=== PATIENT | female | born 2000 | race African-American/Black ===

== ENCOUNTER 2021-02-22 15:24 | Emergency (ER) | payer OTHER, SELFPAY ==
[2021-02-22 15:37] VITALS: BP 112/73; PULSE 86; RESP 16; TEMP 35.9; O2SAT 100
--- NOTE | 2021-02-22 16:13 | ED.URI ---
HPI - URI/Sore Throat General Chief Complaint: Upper Respiratory Infection Stated Complaint: sore throat/sob/congestion Time Seen by Provider: 02/22/21 16:13 Source: patient Mode of arrival: ambulatory Limitations: no limitations History of Present Illness HPI Narrative: David Deutsch is a 20 yo female with complaints of upper respiratory symptoms for the last 3 days. She has not had a fever, no nausea or vomiting, dates she had 1 or 2 bouts of diarrhea in the last 2 to 3 days. Is not had a Covid vaccine. She is not in distress at the present moment Related Data Allergies Allergy/AdvReac Type Severity Reaction Status Date / Time No Known Allergies Allergy Verified 02/22/21 16:02 Review of Systems Review of Systems: CONSTITUTIONAL: Denies fever, chills, sweats. EYES: Denies visual changes, redness, discharge. ENT: has rhinorrhea, congestion,has sore throat, otalgia. CARDIOVASCULAR: Denies chest pain, palpitations, edema. RESPIRATORY: Denies dyspnea, wheezing, cough GASTROINTESTINAL: Denies abdominal pain, nausea, vomiting, diarrhea. GENITOURINARY: Denies dysuria, hematuria, abnormal discharge SKIN: Denies rash or itching. NEUROLOGIC: Denies numbness, or focal weakness. PSYCHIATRIC: Denies anxiety or depression. [facility] Past Medical History Medical History No acute medical problems Family History Family History Other No acute medical problems Social History Social History (Updated 02/22/21 @ 16:16 by Kimberlee Spangler CNP) Smoking status: Never smoker Alcohol intake: never Comments At time of signature, I agree with nursing past medical, surgical, social and family history. There is no relevant family history pertinent to the presenting complaint. Exam Narrative: GENERAL: This is a well-nourished, well-developed patient, in mild distress. HEAD: normocephalic, atraumatic. EYES: PERRL. Sclera clear/white. Vision is grossly intact. EARS: External ears normal, auditory canals clear and without drainage, TMs normal without perforation. Hearing grossly intact. NOSE: External nose normal without nasal discharge, nares without redness, no rhinorrhea. THROAT: Mucous membranes moist, posterior pharynx mild erythema NECK: Neck supple, non-tender CARDIOVASCULAR: Regular rate and rhythm without murmurs, gallops, or rubs. RESPIRATORY: Clear to auscultation. Breath sounds equal bilaterally. No wheezes, rales, or rhonchi. GASTROINTESTINAL: Abdomen soft, non-tender, SKIN: warm, intact with no suspicious lesions or rash, good texture and turgor. NEURO: awake, alert, and oriented to person, place and time. There were no obvious focal neurologic abnormalities. Steady gait EXTREMITIES: Normal range of motion. BACK: Nontender without deformity Course Course Emergency Course: Patient here for assessment of URI Patient started on Zyrtec, Flonase, follow-up with primary care physician Vital Signs Vital signs: Vital Signs Temperature 96.6 F L 02/22/21 15:37 Pulse Rate 86 02/22/21 15:37 Respiratory Rate 16 02/22/21 15:37 Blood Pressure 112/73 02/22/21 15:37 Pulse Oximetry 100 02/22/21 15:37 Temperature 96.6 F L 02/22/21 15:37 Pulse Rate 86 02/22/21 15:37 Respiratory Rate 16 02/22/21 15:37 Blood Pressure 112/73 02/22/21 15:37 Pulse Oximetry 100 02/22/21 15:37 MDM - URI/Sore Throat Differential Diagnosis Differential diagnosis: Likely upper respiratory infection, sinusitis, bronchitis, pharyngitis and other Critical Care Time Critical Care Time Critical Care Time: No Discharge Plan Discharge Clinical Impression: Upper respiratory infection Qualifiers: URI type: unspecified URI Qualified Code(s): J06.9 - Acute upper respiratory infection, unspecified Patient Disposition: Home, Self-Care Condition: Stable Instructions: Upper Respiratory Infection (DC)
== END 2021-02-22 16:40 | disposition home or self-care (01) ==
PROVIDERS: Emergency Provider Nurse Practitioner
DX: J06.9 Acute upper respiratory infection, unspecified (principal); J45.909 Unspecified asthma, uncomplicated
CPT/HCPCS: 99203; G0463

== ENCOUNTER 2021-06-29 17:50 | Emergency (ER) | payer OTHER, SELFPAY ==
[2021-06-29] VITALS (11 sets, daily range): BP systolic 114–138; BP diastolic 57–76; PULSE 99–117; RESP 15–31; TEMP 36.9; O2SAT 98–100
--- NOTE | ~2021-06-29 | XR_ITS ---
EXAMINATION: XR chest 2V EXAM DATE: 06/29/2021 18:22 INDICATION: SOB, CP, wheezing X 5 Days, Hx Asthma. TECHNIQUE: Frontal and lateral projections of the chest obtained and reviewed. There is no prior henry dy for comparison. FINDINGS: The lungs are clear. There are no pleural effusions. The cardiomediastinal silhouette is within normal limits. There is no pneumothorax suspected. The bones and soft tissues are unremarkab le. IMPRESSION: No acute cardiopulmonary findings. Reviewed, dictated and finalized at location G.
--- NOTE | 2021-06-29 17:54 | ECG_ITS ---
Measurements Intervals [place] Rate: 99 P: 48 PA: 148 QRS: 85 QRSD: 86 T: 29 QT: 342 QTc: 440 Interpretive Statements SINUS RHYTHM NONSPECIFIC T-WAVE ABNORMALITY RIGHT AXIS DEVIATION ABNORMAL ECG NO PREVIOUS ECG AVAILABLE FOR COMPARISON Electronically Signed On 06-30-2021 16:13:53 CDT by Jayden Buchanan M.D.
--- NOTE | 2021-06-29 18:00 | ED.SOB ---
HPI - SOB/Dyspnea General Chief Complaint: Shortness of Breath/Dyspnea Stated Complaint: Asthma attack Source: patient and EMS Mode of arrival: EMS Limitations: no limitations History of Present Illness HPI Narrative: Patient is a 20-year-old female who presents the ED, via EMS, with report of shortness of breath. Patient reports having increased shortness of breath over the past 4 days. She has a history of mild asthma, but does not currently take any medications for this. She has a rescue inhaler at home but was unable to find it today. Thus EMS was called. Patient also reports having a recent productive cough with green sputum and midsternal chest pain. She states she feels like something is moving around inside her chest. She denies any fever, chills, BLE pain or edema, rhinorrhea, nausea, vomiting, abdominal pain. Patient is a smoker. Related Data Allergies Allergy/AdvReac Type Severity Reaction Status Date / Time No Known Allergies Allergy Verified 06/29/21 17:58 Review of Systems Review of Systems: CONSTITUTIONAL: Denies fever, chills, or sweats. ENT: Reports rhinorrhea, congestion. CARDIOVASCULAR: Reports midsternal chest pain. Denies BLE edema. RESPIRATORY: Reports productive cough and dyspnea. GASTROINTESTINAL: Denies abdominal pain, nausea, vomiting, or diarrhea. MUSCULOSKELETAL: Denies back pain, BLE pain, or myalgia. NEUROLOGIC: Denies headache, numbness, or weakness. All systems reviewed & are unremarkable except as noted in HPI and below PMFSH Past Medical History Medical History (Updated 06/29/21 @ 20:14 by Renetta Callaway PA-C) Asthma No acute medical problems Surgical History Surgical History (Updated 06/29/21 @ 18:04 by Renetta Callaway PA-C) No pertinent past surgical history Family History Family History Other No acute medical problems Social History Social History (Updated 06/29/21 @ 18:04 by Renetta Callaway PA-C) Smoking status: Current every day smoker Tobacco type: cigarettes Alcohol intake: never Substance use type: marijuana Exam Narrative: GENERAL: Well appearing, obese, non-toxic, in no acute distress. HEAD: Normocephalic, atraumatic. EYES: PERRL/EOMI, conjunctivae clear bilaterally. EARS:TMS clear, with good light reflex. No erythema or bulging. THROAT: Pharynx clear, no exudate. MMs moist. NECK: Supple. No adenopathy, no masses. RESPIRATORY: Airway patent, respirations nonlabored, but slightly tachypneic. Diffuse wheezing in lung [place] bilaterally. CARDIOVASCULAR: Tachycardic with regular rhythm without murmurs, rubs, or gallops. Peripheral pulses 2+ and equal bilaterally. ABDOMINAL: Soft, nontender, nondistended, no hepatosplenomegaly. Normoactive BS. MUSCULOSKELETAL: Moves all extremities. Strength/ROM intact without gross deformities or TTP. No edema. No calf tenderness. SKIN: Warm, dry, normal color. No rashes. NEURO: A&O X3. Speech clear. Cranial nerves II-XII grossly intact. Steady gait. No ataxic movements. PSYCHIATRIC: Tearful. Appropriate mood and affect. Normal interaction. Course Vital Signs Vital signs: Vital Signs Temperature 98.4 F 06/29/21 17:53 Pulse Rate 101 H 06/29/21 17:53 Respiratory Rate 20 06/29/21 17:53 Blood Pressure 138/72 06/29/21 17:53 Pulse Oximetry 100 06/29/21 17:53 Temperature 98.4 F 06/29/21 17:53 Pulse Rate 114 H 06/29/21 20:01 Respiratory Rate 31 H 06/29/21 20:01 Blood Pressure 126/68 06/29/21 20:01 Pulse Oximetry 98 06/29/21 20:01 MDM - SOB/Dyspnea MDM Narrative Medical decision making narrative: Patient with history of mild asthma and presented to ED via EMS with acute exacerbation of asthma. She was given albuterol in the ambulance prior to arrival. Diffuse wheezing heard on auscultation bilaterally. She was given hour-long nebulizer treatment in the ED and IV Solu-Medrol. ED work-up otherwise unremarkable. Chest x-ray witho
[2021-06-29] MEDS: ALBUTEROL SULFATE NEB 2.5 MG/0.5 ML INH 15 MG INHALATION (18:06)
[2021-06-29] MEDS: IPRATROPIUM BR 0.02% INH SOLN 0.5 MG/2.5 ML VIAL 1.5 MG INHALATION (18:06)
[2021-06-29 18:08] LABS: Basophils Percent Auto 0.3 % (0.2-1.2); Eosinophils Absolute Auto 0.2 K/mm3 (0-0.3); Eosinophils Percent Auto 3.1 % (0-4.4); Hematocrit 40.4 % (37.0-47.0); Hemoglobin 13.7 g/dL (12.0-15.0); Immature Granulocyte Absolute 0.02 K/mm3 (0.00-0.031); Immature Granulocyte Percent A 0.3 % (0-0.5); Lymphocytes Absolute Auto 2.12 K/mm3 (0.9-3.2); Lymphocytes Percent Auto 29.7 % (18.3-44.2); Mean Corpuscular HGB Conc 33.9 g/dl (32-36); Mean Corpuscular Hemoglobin 27.6 pg (26-34); Mean Corpuscular Volume 81.5 fl (80-100); Mean Platelet Volume 9.7 fl (7.4-10.4); Monocytes Absolute Auto 0.6 K/mm3 (0.1-0.6); Monocytes Percent Auto 8.7 % (2.6-8.5); Neutrophils Absolute Auto 4.1 K/mm3 (1.3-6.7); Neutrophils Percent Auto 57.9 % (45.5-73.1); Platelet Count Result 278 k/mm3 (150-375); Red Blood Count 4.96 M/mm3 (4.2-5.4); White Blood Count 7.1 K/mm3 (4.5-10.0)
[2021-06-29] MEDS: methylPREDNISolone SOD SUCC 125 MG VIAL IV PUSH (18:09)
[2021-06-29 18:19] LABS: Alanine Aminotransferase 31 U/L (4-35); Albumin Level 4.3 g/dL (3.7-5.6); Alkaline Phosphatase 115 U/L (45-116); Anion Gap 6 mmol/L (8-16); Aspartate Amino Transferase 49 U/L (14-36); Bilirubin,Total 0.5 mg/dL (0.2-1.3); Blood Urea Nitrogen 8 mg/dL (8-21); Calcium 8.7 mg/dL (8.9-10.7); Carbon Dioxide 25 mmol/L (22-30); Chloride 104 mmol/L (98-107); Estimated CRCL calculation 156 ml/min; Estimated Glomerular Filt Rate > 60; Glucose 90 mg/dL (65-110); Potassium 3.7 mmol/L (3.4-5.0); Sodium 135 mmol/L (134-143)
--- NOTE | 2021-06-29 19:33 | PC.NURSE ---
BSSR from Nesha/ Carl/
--- NOTE | 2021-06-29 19:57 | PC.NURSE ---
Pt ambulated to restroom and back without difficulty. Pt provided water. Pt has no needs.Will contiue to monitor..
== END 2021-06-29 20:27 | disposition home or self-care (01) ==
PROVIDERS: Physician Assistant; Emergency Provider Emergency Medicine
DX: J45.20 Mild intermittent asthma, uncomplicated (principal); F17.210 Nicotine dependence, cigarettes, uncomplicated; R94.31 Abnormal electrocardiogram [ECG] [EKG]
CPT/HCPCS: 36415; 71046; 80053; 85025; 93005; 96374; 99284; J2930

== ENCOUNTER 2021-12-17 04:11 | Emergency (ER) | payer OTHER, SELFPAY ==
[2021-12-17 04:18] VITALS: BP 118/70; PULSE 100; RESP 18; TEMP 37.5; O2SAT 100
--- NOTE | 2021-12-17 04:27 | ED.GENADULT ---
HPI - General Adult General Chief complaint: Unspecified Stated complaint: CRAMER, sore throat, body feels on fire. Time Seen by Provider: 12/17/21 04:14 History of Present Illness HPI narrative: 20-year-old female presenting to the emergency department for evaluation of 2 days of subjective fever, sore throat and headache. Patient states the symptoms started 2 days ago. Patient has had episodes of nausea and vomiting but denies any current nausea. Patient denies any sick contacts. Patient has not tested herself for COVID. Patient does report a past medical history of asthma Related Data Allergies Allergy/AdvReac Type Severity Reaction Status Date / Time No Known Allergies Allergy Verified 12/17/21 04:24 Review of Systems Review of Systems: CONSTITUTIONAL: Subjective fever and chills EYES: Denies visual changes, redness, or discharge. ENT: Sore throat CARDIOVASCULAR: Denies chest pain, palpitations, or edema. RESPIRATORY: Cough GASTROINTESTINAL: Denies abdominal pain, nausea, vomiting, or diarrhea. GENITOURINARY: Denies dysuria or hematuria. SKIN: Denies rash or itching. MUSCULOSKELETAL: Body aches NEUROLOGIC: Denies headache, numbness, or weakness. [facility] Past Medical History Medical History (Updated 12/17/21 @ 05:26 by Fermín Busby MD) Asthma No acute medical problems Surgical History Surgical History (Updated 06/29/21 @ 18:04 by Renetta Diaz PA-C) No pertinent past surgical history Family History Family History Other No acute medical problems Social History Social History (Updated 06/29/21 @ 18:04 by Renetta Diaz PA-C) Smoking status: Current every day smoker Tobacco type: cigarettes Alcohol intake: never Substance use type: marijuana Exam Narrative: APPEARANCE: Well appearing, no pain, no distress, well-nourished. HEAD: normocephalic, atraumatic. EYES: PERRLA/EOMI, conjunctivae clear. NOSE: Normal no drainage EARS:TMS clear with good light reflex. THROAT: Pharynx clear, no exudate. NECK: Supple. No adenopathy, no masses. RESPIRATORY: Airway patent, respirations nonlabored. Clear to auscultation bilaterally, no rales, rhonchi, wheezing. CARDIOVASCULAR: Regular rate and rhythm without murmurs rubs or gallops. ABDOMINAL: Soft, nontender, nondistended, normal bowel sounds MUSCULOSKELETAL: Moves all extremities. Strength/ROM intact, No edema, No calf tenderness. NEURO: Alert. Cranial nerves II through XII intact. Grossly intact SKIN: Warm, dry. Normal Color Course Course Emergency Course: Patient's strep, COVID, influenza were negative. Patient was updated on the results of her work-up and plan for symptomatic treatment at home. Suspect a viral etiology for her symptoms. All question concerns were addressed. Patient was well-appearing at time of discharge. Vital Signs Vital signs: Vital Signs Temperature 99.5 F 12/17/21 04:18 Pulse Rate 100 12/17/21 04:18 Respiratory Rate 18 12/17/21 04:18 Blood Pressure 118/70 12/17/21 04:18 Pulse Oximetry 100 12/17/21 04:18 Oxygen Delivery Room Air 12/17/21 04:18 Temperature 99.5 F 12/17/21 04:18 Pulse Rate 70 12/17/21 05:56 Respiratory Rate 16 12/17/21 05:56 Blood Pressure 118/70 12/17/21 04:18 Pulse Oximetry 99 12/17/21 04:34 Oxygen Delivery Room Air 12/17/21 04:34 Medical Decision Making Vital Signs Vital Signs: Vital Signs Temperature 99.5 F 12/17/21 04:18 Pulse Rate 100 12/17/21 04:18 Respiratory Rate 18 12/17/21 04:18 Blood Pressure 118/70 12/17/21 04:18 Pulse Oximetry 100 12/17/21 04:18 Oxygen Delivery Room Air 12/17/21 04:18 Temperature 99.5 F 12/17/21 04:18 Pulse Rate 70 12/17/21 05:56 Respiratory Rate 16 12/17/21 05:56 Blood Pressure 118/70 12/17/21 04:18 Pulse Oximetry 99 12/17/21 04:34 Oxygen Delivery Room Air 12/17/21 04:34 Lab Data Labs: Lab R
[2021-12-17 04:34] VITALS: O2SAT 99
--- NOTE | 2021-12-17 05:15 | PC.NURSE ---
Pt and pt partner both in stretcher cuddling pt's partner instructed to get out of stretcher and only pt to be in the stretcher.
[2021-12-17 05:18] LABS: Influenza A QL RT-PCR Negative (Negative); Influenza B QL RT-PCR Negative (Negative); SARS-CoV-2 RNA PCR Negative
[2021-12-17] MEDS: ALBUTEROL SULFATE NEB 2.5 MG/3 ML INH 5 MG INHALATION (05:48)
[2021-12-17 05:50] VITALS: PULSE 73; RESP 16
[2021-12-17 05:56] VITALS: PULSE 70; RESP 16
== END 2021-12-17 06:00 | disposition home or self-care (01) ==
PROVIDERS: Emergency Provider Emergency Medicine
DX: J02.9 Acute pharyngitis, unspecified (principal); R11.0 Nausea; J45.909 Unspecified asthma, uncomplicated; F17.210 Nicotine dependence, cigarettes, uncomplicated; F12.90 Cannabis use, unspecified, uncomplicated; Z20.822 Contact with and (suspected) exposure to COVID-19
CPT/HCPCS: 87081; 87502; 87880; 94640; 99283; C9803; U0003; U0005

== ENCOUNTER 2022-07-08 01:24 | Emergency (ER) | payer SELFPAY ==
--- NOTE | ~2022-07-08 | XR_ITS ---
EXAMINATION: XR chest 2V DATE: 07/08/2022 02:34 INDICATION: Chest pain. Shortness of breath. TECHNIQUE: Frontal and lateral views of the chest were obtained. COMPARISON: Chest 2 views 06/29/2021 FINDINGS: The chest demonstrates clear lungs without pneumonia, pleural effusion, or pneumothorax. Th e heart size is normal. IMPRESSION: 1. No acute cardiopulmonary disease. Reviewed, dictated and finalized at location A.
--- NOTE | 2022-07-08 01:26 | ECG_ITS ---
Measurements Intervals [place] Rate: 94 P: 40 MD: 172 QRS: 75 QRSD: 83 T: 25 QT: 344 QTc: 431 Interpretive Statements SINUS RHYTHM COMPARED TO ECG 06/29/2021 18:38:12 NO SIGNIFICANT CHANGES Electronically Signed On 07-08-2022 12:58:33 CDT by Ab Lau M.D.
[2022-07-08 01:32] VITALS: BP 128/68; PULSE 100; RESP 20; TEMP 36; O2SAT 98
[2022-07-08 01:57] LABS: Basophils Percent Auto 0.4 % (0.2-1.2); Eosinophils Absolute Auto 0.1 K/mm3 (0-0.3); Eosinophils Percent Auto 1.9 % (0-4.4); Hematocrit 40.2 % (37.0-47.0); Hemoglobin 13.6 g/dL (12.0-15.0); Immature Granulocyte Absolute 0.02 K/mm3 (0.00-0.031); Immature Granulocyte Percent A 0.3 % (0-0.5); Lymphocytes Absolute Auto 2.19 K/mm3 (0.9-3.2); Lymphocytes Percent Auto 32.2 % (18.3-44.2); Mean Corpuscular HGB Conc 33.8 g/dl (32-36); Mean Corpuscular Hemoglobin 27.8 pg (26-34); Mean Corpuscular Volume 82.2 fl (80-100); Mean Platelet Volume 9.5 fl (7.4-10.4); Monocytes Absolute Auto 0.7 K/mm3 (0.1-0.6); Monocytes Percent Auto 10.7 % (2.6-8.5); Neutrophils Absolute Auto 3.7 K/mm3 (1.3-6.7); Neutrophils Percent Auto 54.5 % (45.5-73.1); Platelet Count Result 289 k/mm3 (150-375); Red Blood Count 4.89 M/mm3 (4.2-5.4); Red Cell Distribution Width 13.4 % (11.5-14.5); White Blood Count 6.8 K/mm3 (4.5-10.0)
[2022-07-08 02:09] LABS: Alanine Aminotransferase 41 U/L (6-35); Albumin Level 4.3 g/dL (3.5-5.1); Alkaline Phosphatase 115 U/L (38-126); Anion Gap 9 mmol/L (8-16); Aspartate Amino Transferase 38 U/L (14-36); Bilirubin,Total 0.5 mg/dL (0.2-1.3); Blood Urea Nitrogen 9 mg/dL (7-17); Carbon Dioxide 23 mmol/L (22-30); Chloride 105 mmol/L (98-107); Estimated CRCL calculation 157 ml/min; Estimated Glomerular Filt Rate > 60; Glucose 110 mg/dL (65-110); Lipase 43 U/L (23-300); Potassium 3.6 mmol/L (3.4-5.0); Sodium 137 mmol/L (137-145)
[2022-07-08 02:15] LABS: Partial Thromboplastin Time 29.7 SECONDS (22.3-36.8)
[2022-07-08 02:21] LABS: Troponin I < 0.012 ng/mL (0.000-0.034)
[2022-07-08 03:07] VITALS: BP 123/77; PULSE 88; RESP 20; O2SAT 98
--- NOTE | 2022-07-08 03:09 | ED.GENADULT ---
HPI - General Adult General Chief complaint: Chest Pain Stated complaint: pressure on chest Time Seen by Provider: 07/08/22 03:09 History of Present Illness HPI narrative: Patient was initially seen in triage 21-year-old female presented the emergency department for evaluation of cough and intermittent chest pain. Patient states when she is at rest she has no pain when she coughs she has a burning chest pain when she lays down on her back that she has a sharp pain. Patient states that the cough started approximately 2 days ago. Patient denies any associated fevers with this. Patient did take ibuprofen prior to arrival and states that she is currently pain-free and has no complaints. Patient denies any prior history of PE or DVT. Patient is not on any hormone replacement therapy or control. Patient has no history of cancer and has no lower extremity edema or tenderness. Related Data Allergies Allergy/AdvReac Type Severity Reaction Status Date / Time No Known Allergies Allergy Verified 12/17/21 04:24 Review of Systems Review of Systems: All systems reviewed & are unremarkable except as noted in HPI and below PMFSH Past Medical History Medical History (Updated 07/09/22 @ 00:01 by Peng Mcgraw) Asthma No acute medical problems Surgical History Surgical History (Updated 06/29/21 @ 18:04 by Renetta Diaz PA-C) No pertinent past surgical history Family History Family History Other No acute medical problems Social History Social History (Updated 06/29/21 @ 18:04 by Renetta Diaz PA-C) Smoking status: Current every day smoker Tobacco type: cigarettes Alcohol intake: never Substance use type: marijuana Exam Narrative: APPEARANCE: Well appearing, no pain, no distress, well-nourished. HEAD: normocephalic, atraumatic. EYES: PERRLA/EOMI, conjunctivae clear. NOSE: Normal no drainage THROAT: Pharynx clear, no exudate. NECK: Supple. No adenopathy, no masses. RESPIRATORY: Airway patent, respirations nonlabored. Clear to auscultation bilaterally, no rales, rhonchi, wheezing. CARDIOVASCULAR: Regular rate and rhythm without murmurs rubs or gallops. ABDOMINAL: Soft, nontender, nondistended, normal bowel sounds MUSCULOSKELETAL: Moves all extremities. Strength/ROM intact, No edema, No calf tenderness. NEURO: Alert. Cranial nerves II through XII intact. Good gait. Good coordination SKIN: Warm, dry. Normal Color Course Course Emergency Course: 21-year-old female with pleuritic chest pain. Patient is afebrile with no tachycardia and no leukocytosis. Patient has a normal CMP. Patient's troponin was negative. Chest x-ray showed no acute cardiopulmonary abnormality. EKG showed normal sinus rhythm. Patient's symptoms are consistent with pleurisy and pleuritic chest pain. Patient has no prior history of coronary disease. Patient is PERC negative. Vital Signs Vital signs: Vital Signs Temperature 96.8 F L 07/08/22 01:32 Pulse Rate 100 07/08/22 01:32 Respiratory Rate 20 07/08/22 01:32 Blood Pressure 128/68 07/08/22 01:32 Pulse Oximetry 98 07/08/22 01:32 Oxygen Delivery Room Air 07/08/22 01:32 Temperature 96.8 F L 07/08/22 01:32 Pulse Rate 88 07/08/22 03:07 Respiratory Rate 20 07/08/22 03:07 Blood Pressure 123/77 07/08/22 03:07 Pulse Oximetry 98 07/08/22 03:07 Oxygen Delivery Room Air 07/08/22 01:32 Medical Decision Making Vital Signs Vital Signs: Vital Signs Temperature 96.8 F L 07/08/22 01:32 Pulse Rate 100 07/08/22 01:32 Respiratory Rate 20 07/08/22 01:32 Blood Pressure 128/68 07/08/22 01:32 Pulse Oximetry 98 07/08/22 01:32 Oxygen Delivery Room Air 07/08/22 01:32 Temperature 96.8 F L 07/08/22 01:32 Pulse Rate 88 07/08/22 03:07 Respiratory Rate 20 07/08/22 03:07 Blood Pressure 123/77 07/08/22 03:07 Pulse Oximetry 98 07/08/22 03:07
--- NOTE | 2022-07-08 03:16 | PC.NURSE ---
Pt initially requested strep swab for sore throat. Pt changed her mind because she doesn't want to wait for results. Dr. Busyb notified.
== END 2022-07-08 03:28 | disposition home or self-care (01) ==
PROVIDERS: Emergency Provider Emergency Medicine
DX: R07.81 Pleurodynia (principal); F17.210 Nicotine dependence, cigarettes, uncomplicated
CPT/HCPCS: 36415; 71046; 80053; 83690; 84484; 85025; 85610; 85730; 93005; 99284

== ENCOUNTER 2023-04-04 11:09 | Emergency (ER) | payer SELFPAY ==
--- NOTE | 2023-04-04 11:25 | PC.NURSE ---
Patient called for triage and states its alright, im about to leave . Patient left before triage
== END 2023-04-04 11:37 | disposition left against medical advice (07) ==
DX: Z53.21 Procedure and treatment not carried out due to patient leaving prior to being seen by health care provider (principal)
CPT/HCPCS: 99199